=== PATIENT | male | born 1955 | race Caucasian/White ===

== ENCOUNTER → 2017-11-21 | Outpatient (CLI) | payer BC | END | disposition home or self-care (01) | LOC: HKI 15:04 | DX: M16.11 Unilateral primary osteoarthritis, right hip (principal) | CPT/HCPCS: G0463 ==

== ENCOUNTER 2018-01-06 05:30 | Inpatient (IN) | payer OTHER, BC ==
[2018-01-06] MEDS: ACETAMINOPHEN 1000MG/100ML IV 100 ML IVPB (07:11)
[2018-01-06] MEDS: ONDANSETRON 4 MG INJ IV ×4 (07:11→20:52)
[2018-01-06] MEDS: DEXAMETHASONE 4 MG/ML 1 ML INJ IV (07:11)
[2018-01-06] MEDS: LANSOPRAZOLE 30 MG CAP PO (07:11)
[2018-01-06] MEDS: TRANEXAMIC ACID 1,000 MG in DEXTROSE 5% 100 ML IV ×3 (07:30→09:51)
[2018-01-06] MEDS: CEFAZOLIN SODIUM 2GM/D5W 50 X1 IVPB (07:30)
[2018-01-06] MEDS: POLYMYXIN B 500000 UNIT INJ (07:41)
[2018-01-06] MEDS: BACITRACIN 50000 UNITS INJ (07:41)
[2018-01-06] MEDS ORDERED: BUPIVACAINE 0.5% (SDV) 30 ML INJ (07:55)
[2018-01-06] MEDS ORDERED: PHENYLephrine (100 MCG/ML) 5ML SYG ×3 (08:12→08:56)
[2018-01-06] MEDS ORDERED: LIDOCAINE 100 MG SYRINGE (09:47)
[2018-01-06] MEDS ORDERED: SUGAMMADEX SODIUM 200 MG/2 ML VIAL IV (09:47)
[2018-01-06] MEDS ORDERED: SUCCINYLCHOLINE CHLORIDE 100 MG/5 ML SYG IV (09:47)
[2018-01-06] MEDS ORDERED: CEFAZOLIN 1 GM INJ (09:47)
[2018-01-06] MEDS ORDERED: ROCURONIUM 50 MG INJ (09:47)
[2018-01-06] MEDS ORDERED: PROPOFOL 20 ML (09:47)
[2018-01-06] MEDS ORDERED: NA PHOSPHATE/BIPHOS 133 ML ENEMA PR (10:00)
[2018-01-06] MEDS ORDERED: BISACODYL 10 MG SUPP PR (10:00)
[2018-01-06] MEDS ORDERED: BETHANECHOL 25 MG TAB PO (10:00)
[2018-01-06] MEDS ORDERED: NALOXONE (0.4 MG/ML) INJ IV (10:00)
[2018-01-06] MEDS ORDERED: MAGNESIUM HYDROXIDE 30ML CUP PO (10:00)
[2018-01-06] MEDS ORDERED: ZOLPIDEM 5 MG TAB PO (10:00)
[2018-01-06] MEDS ORDERED: TRIMETHOBENZAMIDE 100 MG/ML VIAL IM (10:00)
[2018-01-06] MEDS ORDERED: SENNA/DOCUSATE NA (8.6MG/50MG) TAB PO (10:00)
[2018-01-06] MEDS ORDERED: KETOROLAC 15 MG INJ IV (10:00)
[2018-01-06] MEDS ORDERED: DIPHENHYDRAMINE 50 MG INJ IM (10:00)
[2018-01-06] MEDS ORDERED: NACL 0.9% 3 ML SYG IV (10:00)
[2018-01-06] MEDS ORDERED: ASPIRIN (EC) 325 MG TAB PO (10:23)
[2018-01-06] MEDS ORDERED: DOCUSATE SODIUM 100 MG CAP PO (10:23)
[2018-01-06] MEDS ORDERED: EPHEDrine SULFATE 50 MG/5 ML SYG (10:27)
[2018-01-06] MEDS ORDERED: DIPHENHYDRAMINE 50 MG INJ IV (10:30)
[2018-01-06] MEDS ORDERED: FENTAnyl 50 MCG/ML VIAL IV ×2 (10:30)
[2018-01-06] MEDS ORDERED: METOCLOPRAMIDE 10 MG INJ IV (10:30)
[2018-01-06] MEDS ORDERED: ALBUTEROL 0.083% (NEB) 2.5 MG/3 ML AMP HHN (10:30)
[2018-01-06] MEDS ORDERED: MEPERIDINE 25 MG INJ IV (10:30)
[2018-01-06] MEDS ORDERED: ALBUMIN HUMAN 5% 250 ML IV (10:30)
[2018-01-06] MEDS ORDERED: ONDANSETRON 4 MG INJ IV (10:30)
[2018-01-06] MEDS: ASPIRIN (EC) 325 MG TAB PO (10:40)
[2018-01-06] MEDS: DOCUSATE SODIUM 100 MG CAP PO (10:41)
[2018-01-06] MEDS: SOD CHLORIDE 0.9% 1,000 ML IV ×2 (11:06→22:17)
[2018-01-06] MEDS: ALBUMIN HUMAN 5% 250 ML IV (11:10)
[2018-01-06] MEDS: CEFAZOLIN 1 GM/50 ML (PMX) 50 ML IVPB ×2 (11:12→18:25)
[2018-01-06] MEDS ORDERED: NON-FORMULARY/PATIENT OWN MED (Omeprazole* 20 MG) PO (13:30)
[2018-01-06] MEDS: HYDROmorphONE (0.2 MG/ML) 10ML SYG IV ×5 (14:36→17:52)
[2018-01-06 15:33] LABS: ADD MAN DIFF? NO
[2018-01-06 15:51] LABS: ABNORMAL IP MESSAGE 1; BASOPHILS % 0.1 % (0.0-2.0); HEMATOCRIT 40.3 % (42.0-52.0); HEMOGLOBIN 14.7 g/dl (14.0-18.0); LYMPHOCYTES # 0.4 10^3/ul (0.8-2.9); LYMPHOCYTES % 2.9 % (15.0-51.0); MEAN CORPUSCULAR HEMOGLOBIN 31.2 pg (29.0-33.0); MEAN CORPUSCULAR HGB CONC 36.5 g/dl (32.0-37.0); MEAN CORPUSCULAR VOLUME 85.6 fl (82.0-101.0); MEAN PLATELET VOLUME 10.7 fl (7.4-10.4); MONOCYTE # 0.2 10^3/ul (0.3-0.9); MONOCYTES % 1.1 % (0.0-11.0); NEUTROPHIL # 12.8 10^3/ul (1.6-7.5); NEUTROPHILS % 95.5 % (39.0-77.0); PLATELET COUNT 182 10^3/UL (140-415); POSITIVE DIFF @See below; RED BLOOD COUNT 4.71 10^6/ul (4.70-6.10); RED CELL DISTRIBUTION WIDTH 12.4 % (11.5-14.5)
[2018-01-06 15:51] LABS: WHITE BLOOD COUNT 13.4 10^3/ul (4.8-10.8)
[2018-01-06 15:53] LABS: HOLD TRANSMISSIONS 1
[2018-01-06 16:04] LABS: ALANINE AMINOTRANSFERASE 32 IU/L (13-69); ALBUMIN 3.7 g/dl (3.3-4.9); ALBUMIN/GLOBULIN RATIO 1.32; ALKALINE PHOSPHATASE 33 IU/L (42-121); ANION GAP 16 (8-16); ASPARTATE AMINO TRANSFERASE 35 IU/L (15-46); BILIRUBIN,INDIRECT 0.4 mg/dl (0-1.1); BILIRUBIN,TOTAL 0.4 mg/dl (0.2-1.3); CARBON DIOXIDE 24 mmol/L (21-31); CHLORIDE 104 mmol/L (97-110); CREATINE KINASE 306 IU/L (23-200); GLUCOSE 128 mg/dl (70-220); TOTAL PROTEIN 6.5 g/dl (6.1-8.1)
[2018-01-06 16:07] LABS: BLOOD UREA NITROGEN 18 mg/dl (7-20); CALCIUM 8.4 mg/dl (8.4-10.2); CREATININE 0.92 mg/dl (0.61-1.24); POTASSIUM 4.2 mmol/L (3.5-5.1); SODIUM 140 mmol/L (135-144)
[2018-01-06 16:21] LABS: CK INDEX 0.8
[2018-01-06 16:28] LABS: CK-MB 2.53 ng/ml (0.0-2.4); TROPONIN-I < 0.012 ng/ml (0.00-0.12)
[2018-01-06] MEDS: ATORVASTATIN 10 MG TAB PO (20:52)
[2018-01-06] MEDS: GABAPENTIN 100 MG CAP PO (20:52)
[2018-01-06] MEDS: oxyCODONE 5 MG TAB PO ×2 (20:53→22:14)
[2018-01-06 21:37] LABS: CREATINE KINASE 370 IU/L (23-200)
[2018-01-06 21:50] LABS: CK INDEX 0.7
[2018-01-06 21:57] LABS: CK-MB 2.71 ng/ml (0.0-2.4); TROPONIN-I < 0.012 ng/ml (0.00-0.12)
[2018-01-07] MEDS: oxyCODONE 5 MG TAB PO ×6 (00:04→18:14)
[2018-01-07] MEDS: CEFAZOLIN 1 GM/50 ML (PMX) 50 ML IVPB (01:35)
[2018-01-07] MEDS: ONDANSETRON 4 MG INJ IV (04:17)
[2018-01-07] MEDS: PANTOPRAZOLE (EC) 40 MG TAB PO (05:13)
[2018-01-07 08:56] LABS: ADD MAN DIFF? NO
[2018-01-07 09:01] LABS: BASOPHILS % 0.1 % (0.0-2.0); HEMATOCRIT 36.1 % (42.0-52.0); HEMOGLOBIN 12.8 g/dl (14.0-18.0); LYMPHOCYTES % 7.3 % (15.0-51.0); MEAN CORPUSCULAR HEMOGLOBIN 30.8 pg (29.0-33.0); MEAN CORPUSCULAR HGB CONC 35.5 g/dl (32.0-37.0); MEAN PLATELET VOLUME 10.4 fl (7.4-10.4); MONOCYTE # 1.2 10^3/ul (0.3-0.9); MONOCYTES % 8.9 % (0.0-11.0); NEUTROPHIL # 10.9 10^3/ul (1.6-7.5); NEUTROPHILS % 83.2 % (39.0-77.0); PLATELET COUNT 185 10^3/UL (140-415); RED BLOOD COUNT 4.15 10^6/ul (4.70-6.10); RED CELL DISTRIBUTION WIDTH 12.6 % (11.5-14.5)
[2018-01-07 09:01] LABS: WHITE BLOOD COUNT 13.1 10^3/ul (4.8-10.8)
[2018-01-07] MEDS: ASPIRIN (EC) 325 MG TAB PO (09:07)
[2018-01-07] MEDS: GABAPENTIN 100 MG CAP PO (09:07)
[2018-01-07] MEDS: FERROUS FUMARATE (SR) TAB PO (09:07)
[2018-01-07] MEDS: CELECOXIB 200 MG CAP PO (09:08)
[2018-01-07] MEDS: DOCUSATE SODIUM 100 MG CAP PO (09:09)
[2018-01-07 09:47] LABS: ANION GAP 16 (8-16); BLOOD UREA NITROGEN 18 mg/dl (7-20); CALCIUM 8.4 mg/dl (8.4-10.2); CARBON DIOXIDE 25 mmol/L (21-31); CHLORIDE 103 mmol/L (97-110); CREATININE 0.92 mg/dl (0.61-1.24); GLUCOSE 97 mg/dl (70-220); POTASSIUM 3.8 mmol/L (3.5-5.1); SODIUM 140 mmol/L (135-144)
[2018-01-07 09:51] LABS: TROPONIN-I < 0.012 ng/ml (0.00-0.12)
== END 2018-01-07 18:25 | disposition home health service (06) | DRG 470 ==
LOC: REC 05:30 → MS4 18:50
PROC: 0SR904A Replacement of Right Hip Joint with Ceramic on Polyethylene Synthetic Substitute, Uncemented, Open Approach (ICD-10-PCS; principal; 2018-01-06 07:30)
DX: M16.11 Unilateral primary osteoarthritis, right hip (principal); I10 Essential (primary) hypertension; R07.9 Chest pain, unspecified; I95.81 Postprocedural hypotension; E78.5 Hyperlipidemia, unspecified; K21.9 Gastro-esophageal reflux disease without esophagitis
CPT/HCPCS: 73530; 80048; 80053; 82550; 82553; 84484; 85025; 86850; 86900; 86901; 87081; 87086; 93005; 97110; 97116; 97162; 97530

== ENCOUNTER → 2018-01-23 | Outpatient (CLI) | payer BC | END | disposition home or self-care (01) | LOC: HKI 13:51 | DX: Z09 Encounter for follow-up examination after completed treatment for conditions other than malignant neoplasm (principal); Z96.641 Presence of right artificial hip joint | CPT/HCPCS: 72170; 73502; 73562-RT ==

== ENCOUNTER → 2018-02-16 | Outpatient (CLI) | payer BC | END | disposition home or self-care (01) | LOC: HKI 10:18 | DX: Z09 Encounter for follow-up examination after completed treatment for conditions other than malignant neoplasm (principal); Z96.641 Presence of right artificial hip joint; M25.551 Pain in right hip | CPT/HCPCS: 73502 ==

== ENCOUNTER → 2018-05-04 | Outpatient (CLI) | payer BC | END | disposition home or self-care (01) | LOC: HKI 10:19 | DX: Z09 Encounter for follow-up examination after completed treatment for conditions other than malignant neoplasm (principal); M25.551 Pain in right hip; Z96.641 Presence of right artificial hip joint; M16.12 Unilateral primary osteoarthritis, left hip | CPT/HCPCS: 73523 ==